=== PATIENT | female | born 1980 ===

== ENCOUNTER 2021-08-19 18:38 | Emergency (ER) | payer OTHER, MEDICAID ==
[2021-08-19 19:49] VITALS: BP 125/87
[2021-08-19] MEDS ORDERED: ACETAMINOPHEN 500 MG TAB PO ONE (20:00)
[2021-08-19] MEDS ORDERED: IBUPROFEN 600 MG TAB PO ONE (20:00)
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
== END 2021-08-19 22:17 | disposition home or self-care (01) ==
LOC: ED 18:38
DX: S43.401A Unspecified sprain of right shoulder joint, initial encounter (principal); M62.838 Other muscle spasm; V89.2XXA Person injured in unspecified motor-vehicle accident, traffic, initial encounter; Y93.89 Activity, other specified; Y92.89 Other specified places as the place of occurrence of the external cause; Y99.8 Other external cause status
CPT/HCPCS: 72040; 99284